=== PATIENT | female | born 1950 | race Caucasian/White ===

== ENCOUNTER 2018-01-20 18:20 | Emergency (ER) | payer SELFPAY ==
[~2018-01-20] VITALS: Ht 167.6 cm; Wt 80.5 kg
[~2018-01-20 18:20] MED LIST: ASPIRIN81 MG PO; ATIVAN1 MG PO; ATIVAN2 MG/ML IM; DULCOLAX5 MG PO; GLUCOPHAGE500 MG PO; HALDOL5 MG/ML IM; HALOPERIDOL2 MG PO; HCTZ25 MG PO; LIPITOR10 MG PO; LISINOPRIL10 MG PO; MACROBID100 MG PO; SENOKOT-S TABLE1 TAB PO; SEROQUEL25 MG PO; VITAMIN D31000 UNI2 PO; ZESTORETIC 20-1 EACH PO; ZOLOFT100 MG PO
[2018-01-20 19:02] VITALS: Ht 167.6 cm; Wt 80.5 kg
[2018-01-20] MEDS ORDERED: MOBIC7.5 MG (19:05)
[2018-01-20 20:37] LABS: BASOPHILS 0.3 % (0-2); EOSINOPHILS 2.5 % (0-7); HEMATOCRIT 34.1 % (36.0-48.0); HEMOGLOBIN 11.6 g/dL (12-16); IMMATURE GRANULOCYTES 0.2 % (0-5); LYMPHOCYTES 38.9 % (15-50); MCH 30.9 pg (26.0-34.0); MCV 90.7 fL (80.0-100.0); MEAN PLATELET VOLUME 9.7 fL (7.4-10.4); MONOCYTES 9.2 % (2-11); NEUTROPHILS 48.9 % (40-80); PLATELET COUNT 325 10x3/uL (130-400); RBC 3.76 10x6/uL (4.00-5.40); RDW 13.1 % (11.5-14.5); WBC 11.1 10x3/uL (4.8-10.8)
[2018-01-20 20:48] LABS: APTT 28.1 SECONDS (22.8-39.4); PROTIME 12.8 SECONDS (11.6-15.0)
[2018-01-20 21:18] LABS: ALKALINE PHOSPHATASE 71 U/L (46-116); ALT (SGPT) 25 U/L (10-68); CALC OSMOLALITY 276 mosm/kg (275-300); CARBON DIOXIDE 27.2 mmol/L (21.0-32.0); CHLORIDE - SERUM 103 mmol/L (98-107); CREATININE - SERUM 0.7 mg/dL (0.6-1.3); GLUCOSE 99 mg/dL (74-106); POTASSIUM - SERUM 3.2 mmol/L (3.5-5.1); PROTEIN - SERUM 7.7 g/dL (6.4-8.2); SODIUM 138 mmol/L (136-145); UREA NITROGEN 16 mg/dL (7-18); eGFR NON AFRICAN AMERICAN 89 mL/min (90-120)
[2018-01-20 21:36] LABS: CKMB 2.5 U/L (0.0-3.6); CREATINE KINASE 180 UL (21-215); PRO BNP 294 pg/mL (0-125)
[2018-01-20 21:38] LABS: TROPONIN-I < 0.017 ng/mL (0.000-0.060)
[2018-01-21 02:23] VITALS: BP 140/90
== END 2018-01-20 20:15 | disposition left against medical advice (07) ==
LOC: D.ER 18:20
PROVIDERS: Family Medicine
DX: R07.9 Chest pain, unspecified (principal); F41.9 Anxiety disorder, unspecified; J44.9 Chronic obstructive pulmonary disease, unspecified; F17.200 Nicotine dependence, unspecified, uncomplicated

== ENCOUNTER 2018-03-23 17:57 | Emergency (ER) | payer MEDICARE ==
[~2018-03-23] VITALS: Ht 167.6 cm; Wt 81.8 kg
[~2018-03-23 17:57] MED LIST changes: +MOBIC7.5 MG
[2018-03-23 18:02] VITALS: Ht 167.6 cm; Wt 81.8 kg
[2018-03-23] MEDS ORDERED: PROVENTIL/2.5 MG/3 M (18:04)
[2018-03-23] MEDS ORDERED: STEROIDS (18:04)
[2018-03-23 18:22] LABS: BASOPHILS 0.1 % (0-2); EOSINOPHILS 0.3 % (0-7); HEMATOCRIT 37.6 % (36.0-48.0); HEMOGLOBIN 12.7 g/dL (12-16); IMMATURE GRANULOCYTES 0.7 % (0-5); LYMPHOCYTES 22.6 % (15-50); MCH 30.9 pg (26.0-34.0); MCHC 33.8 g/dL (31.0-37.0); MCV 91.5 fL (80.0-100.0); MONOCYTES 8.5 % (2-11); NEUTROPHILS 67.8 % (40-80); PLATELET COUNT 388 10x3/uL (130-400); RBC 4.11 10x6/uL (4.00-5.40); RDW 14.4 % (11.5-14.5); WBC 19.7 10x3/uL (4.8-10.8)
[2018-03-23 18:47] LABS: ALBUMIN 3.4 g/dL (3.4-5.0); ALKALINE PHOSPHATASE 66 U/L (46-116); ALT (SGPT) 23 U/L (10-68); BILIRUBIN - TOTAL 0.16 mg/dL (0.2-1.3); CALC OSMOLALITY 278 mosm/kg (275-300); CALCIUM 8.5 mg/dL (8.5-10.1); CARBON DIOXIDE 28.2 mmol/L (21.0-32.0); CHLORIDE - SERUM 102 mmol/L (98-107); CREATININE - SERUM 1.2 mg/dL (0.6-1.3); POTASSIUM - SERUM 4.1 mmol/L (3.5-5.1); PROTEIN - SERUM 7.5 g/dL (6.4-8.2); SODIUM 136 mmol/L (136-145); UREA NITROGEN 25 mg/dL (7-18); eGFR NON AFRICAN AMERICAN 48 mL/min (90-120)
[2018-03-23 18:48] LABS: GLUCOSE 160 mg/dL (74-106)
[2018-03-23 18:52] LABS: CKMB 3.1 U/L (0.0-3.6); CREATINE KINASE 91 UL (21-215); PRO BNP 181 pg/mL (0-125); TROPONIN-I < 0.017 ng/mL (0.000-0.060)
[2018-03-23 20:51] LABS: APPEARANCE CLEAR (CLEAR); BILIRUBIN NEGATIVE (NEGATIVE); COLOR YELLOW (YELLOW); GLUCOSE NEGATIVE (NEGATIVE); KETONE NEGATIVE (NEGATIVE); NITRITE NEGATIVE (NEGATIVE); PROTEIN NEGATIVE (NEGATIVE); UROBILINOGEN NORMAL (NORMAL)
[2018-03-23 22:31] LABS: CKMB 2.8 U/L (0.0-3.6); CREATINE KINASE 83 UL (21-215)
[2018-03-23 22:32] LABS: TROPONIN-I < 0.017 ng/mL (0.000-0.060)
[2018-03-23] MEDS ORDERED: PROAIR HFA8.5 GM INH (23:23)
[2018-03-23] MEDS ORDERED: PROTONIX40 MG PO (23:23)
[2018-03-23 23:45] VITALS: BP 132/71
== END 2018-03-23 23:45 | disposition home or self-care (01) ==
LOC: D.ER 17:57
PROVIDERS: Emergency Medicine; Family Medicine
DX: K29.70 Gastritis, unspecified, without bleeding (principal); R07.9 Chest pain, unspecified; M25.552 Pain in left hip; J44.9 Chronic obstructive pulmonary disease, unspecified; D72.829 Elevated white blood cell count, unspecified; I10 Essential (primary) hypertension